=== PATIENT | female | born 1935 | race African-American/Black ===

== ENCOUNTER 2019-04-14 11:36 | Day surgery (SDC) | payer OTHER ==
[2019-04-14] MEDS ORDERED: FERRIC CARBOXYMALTOSE 750 MG in SODIUM CHLORIDE 250 ML IVPB ONE (12:30)
[2019-04-14 12:35] VITALS: PULSE 72
[2019-04-14 12:36] VITALS: BP 115/72; TEMP 98.2
== END 2019-04-14 13:39 | disposition home or self-care (01) ==
LOC: JASU-ENDO 11:36
PROVIDERS: ATTEND Family Medicine
PROC: 3E033GC Introduction of Other Therapeutic Substance into Peripheral Vein, Percutaneous Approach (ICD-10-PCS; principal; 2019-04-14)
DX: D50.9 Iron deficiency anemia, unspecified (principal)
CPT/HCPCS: 96365; J1439

== ENCOUNTER 2019-05-07 11:30 | Day surgery (SDC) | payer OTHER ==
[~2019-05-07 11:30] MED LIST: FERRIC CARBOXYMALTOSE 750 MG in SODIUM CHLORIDE 250 ML IVPB ONE
[2019-05-07 13:29] VITALS: BP 135/78; PULSE 76; TEMP 98
== END 2019-05-07 13:10 | disposition home or self-care (01) ==
LOC: JASU-ENDO 11:30
PROVIDERS: ATTEND Family Medicine
PROC: 3E033GC Introduction of Other Therapeutic Substance into Peripheral Vein, Percutaneous Approach (ICD-10-PCS; principal; 2019-05-07)
DX: D50.9 Iron deficiency anemia, unspecified (principal)
CPT/HCPCS: 96365; J1439